=== PATIENT | female | born 1985 | race Asian ===

== ENCOUNTER 2020-11-02 09:08 | Emergency (ER) | payer BC ==
[~2020-11-02] VITALS: Ht 157.5 cm; Wt 48.1 kg
--- NOTE | 2020-11-02 09:37 | NUR ---
The patient bibs for c/o fatigue and body malaise x 30 days + COVID test yesterday. Oxygen saturation in room air is at 100%. Respiration regular and unlabored. Will continue to monitor the patient.
[2020-11-02] MEDS ORDERED: GUAIFENESIN LA 600 MG TABLET.SA PO ONE (09:47)
[2020-11-02] MEDS ORDERED: KETOROLAC TROMETHAMINE INJ 30 MG/ML VIAL ONE (09:47)
[2020-11-02] MEDS: GUAIFENESIN LA 600 MG TABLET.SA PO ONE (09:54)
[2020-11-02] MEDS: KETOROLAC TROMETHAMINE INJ 30 MG/ML VIAL IM ONE (09:54)
[2020-11-02] MEDS ORDERED: IBUP-1957 PO (10:15)
[2020-11-02] MEDS ORDERED: GUAI1TBM19 PO (10:15)
[2020-11-02] MEDS ORDERED: BENZ-13 PO (10:15)
[2020-11-02 10:45] VITALS: BP 121/63
--- NOTE | 2020-11-02 10:45 | NUR ---
Patient discharged to home in stable condition. Written and verbal after care instructions given. Patient verbalizes understanding of instruction.
== END 2020-11-02 10:45 | disposition home or self-care (01) ==
LOC: ER 09:12
DX: U07.1 COVID-19 (principal); Z79.899 Other long term (current) drug therapy
CPT/HCPCS: 96372; 99283; J1885